=== PATIENT | male | born 1940 | race Caucasian/White ===

== ENCOUNTER 2022-04-04 07:31 | Emergency (ER) | payer MEDICARE ==
[~2022-04-04] VITALS: Ht 182.9 cm; Wt 95.8 kg
[2022-04-04] MEDS ORDERED: PANT40TA29 (07:38)
[2022-04-04] MEDS ORDERED: METO1TAB7 (07:38)
[2022-04-04] MEDS ORDERED: LISI2.5T9 (07:38)
[2022-04-04] MEDS ORDERED: METF-838 (07:38)
[2022-04-04 09:09] LABS: HEMATOCRIT 45.3 % (42.0-52.0); MEAN CORPUSCULAR HEMOGLOBIN 29.7 pg (27.0-33.0); MEAN CORPUSCULAR HGB CONC 30.9 g/dl (32.0-36.5); MEAN CORPUSCULAR VOLUME 96.2 fl (80.0-96.0); PLATELET COUNT, AUTOMATED 227 10^3/uL (150-450); RED BLOOD COUNT 4.71 10^6/uL (4.30-6.10); WHITE BLOOD COUNT 6.1 10^3/uL (4.0-10.0)
[2022-04-04 09:23] LABS: INR 0.96
[2022-04-04 09:38] LABS: CALCIUM LEVEL 8.7 MG/DL (8.8-10.2); CREATININE FOR GFR 1.93 MG/DL (0.70-1.30); GLOMERULAR FILTRATION RATE 35.6 (>35); POTASSIUM SERUM 5.1 MEQ/L (3.5-5.1)
[2022-04-04] MEDS ORDERED: NS 1,000 ML IV ONE (11:20)
[2022-04-04 14:36] VITALS: BP 126/63
== END 2022-04-04 14:39 | disposition home or self-care (01) ==
LOC: M ED 11:20
DX: N40.1 Benign prostatic hyperplasia with lower urinary tract symptoms (principal); D49.4 Neoplasm of unspecified behavior of bladder; R31.0 Gross hematuria; K80.20 Calculus of gallbladder without cholecystitis without obstruction; N28.1 Cyst of kidney, acquired; M19.011 Primary osteoarthritis, right shoulder; Z86.19 Personal history of other infectious and parasitic diseases; E11.9 Type 2 diabetes mellitus without complications; I10 Essential (primary) hypertension; K21.9 Gastro-esophageal reflux disease without esophagitis; J45.909 Unspecified asthma, uncomplicated

== ENCOUNTER 2022-04-10 17:32 | Observation (INO) | payer MEDICARE ==
[~2022-04-10] VITALS: Ht 182.9 cm; Wt 94.6 kg
[~2022-04-10 17:32] MED LIST: LISI2.5T9; METF-838; METO1TAB7; PANT40TA29
[2022-04-10 22:49] LABS: BASO # 0.1 10^3/uL (0.0-0.2); BASO % 0.6 % (0.0-1.0); EOS # 0.3 10^3/uL (0.0-0.5); EOS % 3.5 % (0.0-3.0); HEMATOCRIT 42.8 % (42.0-52.0); HEMOGLOBIN 13.6 g/dl (13.5-17.5); LYMPH # 1.6 10^3/uL (1.5-5.0); LYMPH % 19.2 % (24.0-44.0); MEAN CORPUSCULAR HEMOGLOBIN 30.2 pg (27.0-33.0); MEAN CORPUSCULAR HGB CONC 31.8 g/dl (32.0-36.5); MEAN CORPUSCULAR VOLUME 95.1 fl (80.0-96.0); MONO # 0.9 10^3/uL (0.0-0.8); MONO % 10.8 % (2.0-8.0); NEUTROPHILS # 5.4 10^3/uL (1.5-8.5); NEUTROPHILS % 65.5 % (36.0-66.0); PLATELET COUNT, AUTOMATED 235 10^3/uL (150-450); WHITE BLOOD COUNT 8.2 10^3/uL (4.0-10.0)
[2022-04-10] MEDS ORDERED: EXCETAB32 PO (22:52)
[2022-04-10] MEDS ORDERED: METO1TAB7 PO (22:52)
[2022-04-10] MEDS ORDERED: PANT-23 PO (22:52)
[2022-04-10] MEDS ORDERED: METF-838 PO (22:52)
[2022-04-10] MEDS ORDERED: HOME MED LIST COMPLETE! XX SCH (22:55)
[2022-04-10 23:22] LABS: RSV AMPLIFICATION NEGATIVE (NEGATIVE)
[2022-04-10 23:23] LABS: CALCIUM LEVEL 8.7 MG/DL (8.3-10.6); CREATININE FOR GFR 1.85 MG/DL (0.70-1.30); GLOMERULAR FILTRATION RATE 37.4 (>35); POTASSIUM SERUM 4.2 MMOL/L (3.5-5.1)
[2022-04-11] VITALS (11 sets, daily range): BP systolic 82–124; BP diastolic 48–68
[2022-04-11] MEDS ORDERED: GLUCAGON INJ 1MG VIAL SC PRN (01:40)
[2022-04-11] MEDS ORDERED: DEXTROSE 50% 50 ML SYRINGE IV PRN (01:40)
[2022-04-11] MEDS ORDERED: GLUCOSE 4GM CHEW TABLET PO PRN (01:40)
[2022-04-11] MEDS ORDERED: INSULIN LISPRO (NovoLOG) PER UNIT SC SCH ×3 (07:30→21:00)
[2022-04-11] MEDS ORDERED: METOPROLOL SUCC (TopROL XL) 50MG **XL** TAB PO SCH (09:00)
[2022-04-11] MEDS: PANTOPRAZOLE 40MG TAB (PROTONIX) PO SCH (09:00)
[2022-04-11] MEDS: NS 1,000 ML IV SCH ×2 (10:05→20:11)
[2022-04-11] MEDS: TAMSULOSIN 0.4 MG CAP PO SCH (10:05)
[2022-04-11] MEDS: INSULIN LISPRO (NovoLOG) PER UNIT SC SCH ×2 (12:00→18:00)
[2022-04-11] MEDS ORDERED: ACETAMINOPHEN TAB 650MG DOSE (2X325MG) PO PRN (13:15)
[2022-04-11] MEDS ORDERED: IPRATROPIUM 0.5MG/ALBUTEROL 2.5MG INH SOL UD 3ML (DUONEB) NEB PRN (13:20)
[2022-04-11] MEDS ORDERED: LIDOCAINE 2% 100MG/5ML SDV (FOR ANES.) As Ordered ONE (15:51)
[2022-04-11] MEDS ORDERED: ONDANSETRON 4MG 2ML VIAL As Ordered ONE (15:52)
[2022-04-11] MEDS ORDERED: fentaNYL 100 MCG/2 ML INJECTION As Ordered ONE (15:52)
[2022-04-11] MEDS ORDERED: propofoL 200 MG/20 ML VIAL As Ordered ONE (15:52)
[2022-04-11] MEDS ORDERED: MIDAZOLAM INJ 2MG/2ML VIAL (J2250 PER 1MG) As Ordered ONE (15:52)
[2022-04-11] MEDS ORDERED: dexameTHASONE 4 MG/ML 1ML VIAL (J1100 PER 1MG) As Ordered ONE (15:52)
[2022-04-11] MEDS ORDERED: MUPIROCIN 2% OINT 22 GM TUBE As Ordered ONE (16:17)
[2022-04-11] MEDS ORDERED: BUPIVACAINE HCL 0.25% 30ML VIAL As Ordered ONE (16:17)
[2022-04-11] MEDS ORDERED: BACITRACIN OINTMENT 30GM TUBE As Ordered ONE (16:18)
[2022-04-11] MEDS ORDERED: VASOPRESSIN INJ 20 UNITS/ML VIAL As Ordered ONE (16:50)
[2022-04-11] MEDS ORDERED: ceFAZolin 2 GM/D5W 50 ML IV BAG (J0690 PER 500MG) As Ordered ONE (17:04)
[2022-04-11] MEDS ORDERED: LR 1,000 ML IV SCH (18:10)
[2022-04-11] MEDS ORDERED: MORPHINE 2 MG/ML 1ML VIAL IV PRN (18:10)
[2022-04-11] MEDS ORDERED: ONDANSETRON 4MG 2ML VIAL IV PRN (18:10)
[2022-04-11] MEDS ORDERED: oxyCODONE 5MG TAB PO PRN (18:10)
[2022-04-11] MEDS: fentaNYL 100 MCG/2 ML INJECTION IV PRN ×4 (18:26→18:43)
[2022-04-11] MEDS ORDERED: hydrOXYzine 50 MG TAB PO ONE (20:00)
[2022-04-11] MEDS ORDERED: TEMAZEPAM 7.5 MG CAP PO PRN (20:00)
[2022-04-11] MEDS ORDERED: NS 1,000 ML IV ONE (20:40)
[2022-04-11] MEDS: oxyCODONE 5MG TAB PO PRN (21:04)
[2022-04-11] MEDS: ceFAZolin SOD 1 GM in D5W MINI-BAG PLUS 50 ML IV SCH (23:52)
[2022-04-12] VITALS (7 sets, daily range): BP systolic 93–110; BP diastolic 42–78
[2022-04-12] MEDS: oxyCODONE 5MG TAB PO PRN ×3 (03:55→13:54)
[2022-04-12] MEDS ORDERED: MORPHINE 2 MG/ML 1ML VIAL IV ONE (06:00)
[2022-04-12 07:05] LABS: CALCIUM LEVEL 8.8 MG/DL (8.3-10.6); CREATININE FOR GFR 1.48 MG/DL (0.70-1.30); GLOMERULAR FILTRATION RATE 48.3 (>35); POTASSIUM SERUM 4.7 MMOL/L (3.5-5.1)
[2022-04-12] MEDS: INSULIN LISPRO (NovoLOG) PER UNIT SC SCH ×2 (08:34→12:17)
[2022-04-12] MEDS ORDERED: ACETAMINOPHEN TAB 650MG DOSE (2X325MG) PO PRN (08:50)
[2022-04-12] MEDS: PANTOPRAZOLE 40MG TAB (PROTONIX) PO SCH (09:33)
[2022-04-12] MEDS: TAMSULOSIN 0.4 MG CAP PO SCH (09:33)
[2022-04-12] MEDS: ceFAZolin SOD 1 GM in D5W MINI-BAG PLUS 50 ML IV SCH ×2 (09:43→16:12)
[2022-04-12] MEDS: NS 1,000 ML IV SCH (12:17)
[2022-04-12] MEDS ORDERED: HEPARIN SOD (PORCINE) 5000UNITS/ML 1ML VIAL/SYRINGE SQ SCH (14:00)
[2022-04-12] MEDS ORDERED: TOPR25TA PO (14:32)
[2022-04-12] MEDS ORDERED: FLOM0.4C39 PO (14:32)
[2022-04-12] MEDS ORDERED: COMBAER6 INH (14:32)
[2022-04-12] MEDS ORDERED: OXYC-517 PO (14:32)
[2022-04-12] MEDS ORDERED: ACET-897 PO (14:32)
[2022-04-12] MEDS ORDERED: FARX1TAB3 PO (14:33)
== END 2022-04-12 17:35 | disposition home or self-care (01) ==
LOC: M ED 17:32 → M ED INP 17:33 → ENRESERV 04-11 02:02 → M MS5PR 04-11 02:37
PROVIDERS: ADMIT Internal Medicine; ATTEND Internal Medicine
DX: S63.095A Other dislocation of left wrist and hand, initial encounter (principal); X58.XXXA Exposure to other specified factors, initial encounter; G56.02 Carpal tunnel syndrome, left upper limb; E11.22 Type 2 diabetes mellitus with diabetic chronic kidney disease; I12.9 Hypertensive chronic kidney disease with stage 1 through stage 4 chronic kidney disease, or unspecified chronic kidney disease; N40.1 Benign prostatic hyperplasia with lower urinary tract symptoms; J44.9 Chronic obstructive pulmonary disease, unspecified; K21.9 Gastro-esophageal reflux disease without esophagitis; N18.4 Chronic kidney disease, stage 4 (severe); N32.9 Bladder disorder, unspecified; Z79.899 Other long term (current) drug therapy; Z79.84 Long term (current) use of oral hypoglycemic drugs
CPT/HCPCS: 25215; 36415; 64721; 73110; 76000; 80048; 85025; 87631; 88300; 96372; 96374; 96375; 96376; 97161; 97165; 97530; 99285; G0378; J0690; J1100; J1644; J1815; J2250; J2270; J2405; J3010

== ENCOUNTER → 2022-04-24 | Outpatient (CLI) | payer MEDICARE ==
[~2022-04-24] MED LIST changes: +ACET-897 PO; +COMBAER6 INH; +EXCETAB32 PO; +FARX1TAB3 PO; +FLOM0.4C39 PO; +METF-838 PO; +METO1TAB7 PO; +OXYC-517 PO; +PANT-23 PO; +TOPR25TA PO
== END ==
LOC: M SOG 11:47
PROVIDERS: ATTEND Orthopaedic Surgery Hand Surgery
DX: Z47.89 Encounter for other orthopedic aftercare (principal); Z98.890 Other specified postprocedural states

== ENCOUNTER → 2022-07-03 | Outpatient (REF) | payer MEDICARE ==
[2022-07-03 19:18] LABS: APPEARANCE, URINE MANUAL CLEAR (CLEAR); COLOR, URINE MANUAL LT YELLOW (YELLOW)
[2022-07-03 19:19] LABS: BILIRUBIN, URINE MANUAL NEGATIVE (NEGATIVE); BLOOD URINE MANUAL POSITIVE (NEGATIVE); GLUCOSE, URINE (UA) MANUAL NEGATIVE (NEGATIVE); KETONE, URINE MANUAL NEGATIVE (NEGATIVE); LEUKOCYTE ESTERASE, URINE MAN NEGATIVE (NEGATIVE); NITRITE, URINE MANUAL NEGATIVE (NEGATIVE); PH,URINE MAN 5.5 UNITS (5.0 - 7.0); PROTEIN, URINE MANUAL 2+ mg/dL (NEGATIVE); UROBILINOGEN, URINE MANUAL NORMAL (NORMAL)
[2022-07-03 20:05] LABS: RBC, URINE 30-40 /hpf (0-3); RENAL EPITHELIAL CELLS, URINE SMALL AMOUNT /hpf; SQUAMOUS EPITHELIAL CELL URINE SMALL AMOUNT /hpf (SMALL AMT); WBC, URINE 20-30 /hpf (0-3)
[2022-07-03 20:06] LABS: AMORPHOUS SEDIMENT, URINE SMALL AMOUNT (NEGATIVE); BACTERIA, URINE SMALL AMOUNT; TRANSITIONAL EPI CELLS, URINE SMALL AMOUNT /hpf
== END ==
LOC: M SMT 12:59
PROVIDERS: ATTEND Urology
DX: N32.89 Other specified disorders of bladder (principal)

== ENCOUNTER → 2022-08-20 | Outpatient (CLI) | payer MEDICARE ==
[~2022-08-20] MED LIST changes: +LISI2.5T9 PO
== END ==
LOC: M LABSMTC 10:07
PROVIDERS: ATTEND Anesthesiology
DX: Z01.812 Encounter for preprocedural laboratory examination (principal); Z20.822 Contact with and (suspected) exposure to COVID-19

== ENCOUNTER 2022-08-23 09:39 | Day surgery (SDC) | payer MEDICARE ==
[2022-08-23] VITALS (7 sets, daily range): BP systolic 101–120; BP diastolic 53–80
[~2022-08-23] VITALS: Ht 185.4 cm; Wt 90.7 kg
[2022-08-23] MEDS ORDERED: LR 1,000 ML IV SCH ×2 (10:30→13:15)
[2022-08-23] MEDS ORDERED: INSULIN LISPRO (NovoLOG) PER UNIT SC PRN ×2 (10:55→13:30)
[2022-08-23] MEDS ORDERED: ACETAMINOPHEN 1000MG 100ML IV BAG As Ordered ONE (11:43)
[2022-08-23] MEDS ORDERED: LIDOCAINE 2% 100MG/5ML SDV (FOR ANES.) As Ordered ONE (11:44)
[2022-08-23] MEDS ORDERED: propofoL 200 MG/20 ML VIAL As Ordered ONE (11:44)
[2022-08-23] MEDS ORDERED: ONDANSETRON 4MG 2ML VIAL As Ordered ONE (11:44)
[2022-08-23] MEDS ORDERED: fentaNYL 100 MCG/2 ML INJECTION As Ordered ONE (11:46)
[2022-08-23] MEDS: ceFAZolin SOD 2 GM in IV 1 EA IV ONE (12:10)
[2022-08-23] MEDS ORDERED: ROCURONIUM BROMIDE 50MG/5ML VIAL As Ordered ONE (12:19)
[2022-08-23] MEDS ORDERED: PHENYLephrine 500MCG 5ML (100MCG/ML) SYRINGE As Ordered ONE (12:46)
[2022-08-23] MEDS ORDERED: SUGAMMADEX SODIUM 500 MG/5 ML VIAL (BRIDION) As Ordered ONE (13:08)
[2022-08-23] MEDS ORDERED: ONDANSETRON 4MG 2ML VIAL IV PRN ×2 (13:15→13:25)
[2022-08-23] MEDS ORDERED: ACETAMINOPHEN 500 MG TAB PO PRN (13:25)
[2022-08-23] MEDS ORDERED: GLUCAGON INJ 1MG VIAL SC PRN (13:25)
[2022-08-23] MEDS ORDERED: NORCO, ANEXSIA 5/325MG TABLET (HYDROcodone/ACETAMINOPHEN) PO PRN (13:25)
[2022-08-23] MEDS ORDERED: GLUCOSE 4GM CHEW TABLET PO PRN (13:25)
[2022-08-23] MEDS ORDERED: MORPHINE 2 MG/ML 1ML VIAL IV PRN (13:25)
[2022-08-23] MEDS ORDERED: DEXTROSE 50% 50ML SYRINGE IV PRN (13:25)
[2022-08-23] MEDS: fentaNYL 100 MCG/2 ML INJECTION IV PRN ×4 (13:39→13:59)
[2022-08-23] MEDS: oxyCODONE 5MG TAB PO PRN ×2 (13:52→14:28)
[2022-08-23] MEDS: HYDROMORPHONE HCL 0.5 MG/ 0.5 ML SYRINGE IV PRN ×2 (14:15→14:28)
[2022-08-23 15:26] LABS: BASO % 0.2 % (0.0-1.0); EOS # 0.1 10^3/uL (0.0-0.5); EOS % 0.8 % (0.0-3.0); HEMATOCRIT 37.3 % (42.0-52.0); HEMOGLOBIN 11.8 g/dl (13.5-17.5); LYMPH # 0.7 10^3/uL (1.5-5.0); LYMPH % 6.4 % (24.0-44.0); MEAN CORPUSCULAR HEMOGLOBIN 29.3 pg (27.0-33.0); MEAN CORPUSCULAR HGB CONC 31.6 g/dl (32.0-36.5); MEAN CORPUSCULAR VOLUME 92.6 fl (80.0-96.0); MONO # 0.4 10^3/uL (0.0-0.8); NEUTROPHILS # 8.9 10^3/uL (1.5-8.5); PLATELET COUNT, AUTOMATED 216 10^3/uL (150-450); RED BLOOD COUNT 4.03 10^6/uL (4.30-6.10); WHITE BLOOD COUNT 10.1 10^3/uL (4.0-10.0)
[2022-08-23] MEDS: D5W/0.45% SODIUM CHLORIDE 1,000 ML IV SCH ×2 (15:39→23:00)
[2022-08-23 15:50] LABS: ALBUMIN 2.9 G/DL (3.2-5.2); BILIRUBIN,TOTAL 0.4 MG/DL (0.3-1.2); CALCIUM LEVEL 8.4 MG/DL (8.3-10.6); CREATININE FOR GFR 1.33 MG/DL (0.70-1.30); GLOMERULAR FILTRATION RATE 54.5 (>35); POTASSIUM SERUM 4.3 MMOL/L (3.5-5.1); TOTAL PROTEIN 5.6 G/DL (5.7-8.2)
[2022-08-23] MEDS: INSULIN LISPRO (NovoLOG) PER UNIT SC SCH ×2 (18:46→23:19)
[2022-08-23] MEDS ORDERED: PANTOPRAZOLE 40MG VIAL IV SCH (21:00)
[2022-08-23] MEDS: ceFAZolin SOD 1 GM in D5W MINI-BAG PLUS 50 ML IV SCH (21:25)
[2022-08-23] MEDS: oxyBUTYnin 5 MG TAB PO SCH (21:25)
[2022-08-23] MEDS: PHENAZOPYRIDINE 100 MG TAB PO SCH (23:00)
[2022-08-24 00:20] VITALS: BP 106/56
[2022-08-24] MEDS: ceFAZolin SOD 1 GM in D5W MINI-BAG PLUS 50 ML IV SCH ×2 (03:27→12:13)
[2022-08-24 04:20] VITALS: BP 103/57
[2022-08-24 05:35] VITALS: BP 110/52
[2022-08-24 05:47] LABS: BASO % 0.2 % (0.0-1.0); EOS # 0.1 10^3/uL (0.0-0.5); EOS % 0.7 % (0.0-3.0); HEMATOCRIT 33.4 % (42.0-52.0); HEMOGLOBIN 10.6 g/dl (13.5-17.5); LYMPH # 1.2 10^3/uL (1.5-5.0); LYMPH % 13.8 % (24.0-44.0); MEAN CORPUSCULAR HEMOGLOBIN 29.7 pg (27.0-33.0); MEAN CORPUSCULAR HGB CONC 31.7 g/dl (32.0-36.5); MEAN CORPUSCULAR VOLUME 93.6 fl (80.0-96.0); MONO # 0.8 10^3/uL (0.0-0.8); MONO % 9.3 % (2.0-8.0); NEUTROPHILS # 6.5 10^3/uL (1.5-8.5); NEUTROPHILS % 75.6 % (36.0-66.0); PLATELET COUNT, AUTOMATED 200 10^3/uL (150-450); RED BLOOD COUNT 3.57 10^6/uL (4.30-6.10); WHITE BLOOD COUNT 8.6 10^3/uL (4.0-10.0)
[2022-08-24 06:21] LABS: ALBUMIN 2.7 G/DL (3.2-5.2); BILIRUBIN,TOTAL 0.4 MG/DL (0.3-1.2); CALCIUM LEVEL 7.9 MG/DL (8.3-10.6); CREATININE FOR GFR 1.47 MG/DL (0.70-1.30); GLOMERULAR FILTRATION RATE 48.6 (>35)
[2022-08-24] MEDS: INSULIN LISPRO (NovoLOG) PER UNIT SC SCH ×2 (06:50→13:11)
[2022-08-24] MEDS: PHENAZOPYRIDINE 100 MG TAB PO SCH (08:19)
[2022-08-24] MEDS: oxyBUTYnin 5 MG TAB PO SCH (08:20)
[2022-08-24 10:00] VITALS: BP 102/53
[2022-08-24] MEDS: D5W/0.45% SODIUM CHLORIDE 1,000 ML IV SCH (12:13)
== END 2022-08-24 17:03 | disposition home or self-care (01) ==
LOC: M SDC 09:39 → M MSPAV 15:50 → M SDC 08-24 17:03
PROVIDERS: ATTEND Urology
DX: C67.9 Malignant neoplasm of bladder, unspecified (principal); E11.9 Type 2 diabetes mellitus without complications; I10 Essential (primary) hypertension; J44.9 Chronic obstructive pulmonary disease, unspecified; N40.0 Benign prostatic hyperplasia without lower urinary tract symptoms; Z87.891 Personal history of nicotine dependence; Z79.899 Other long term (current) drug therapy; Z79.51 Long term (current) use of inhaled steroids; Z79.84 Long term (current) use of oral hypoglycemic drugs
CPT/HCPCS: 36415; 52240; 80053; 85025; 88305; 96361; 96365; 96366; 96375; C9113; J0131; J0690; J1100; J1170; J1815; J2370; J2405; J3010

== ENCOUNTER 2022-12-03 08:44 | Observation (INO) | payer MEDICARE ==
[2022-12-03] VITALS (7 sets, daily range): BP systolic 106–134; BP diastolic 48–80; TEMP 97.7–98.4; O2SAT 95–97
[~2022-12-03] VITALS: Ht 182.9 cm; Wt 99.3 kg
[~2022-12-03 08:44] MED LIST changes: +LANTINJ4 SC; +METO1TAB32 PO; +ceFAZolin SOD 2 GM in IV 1 EA IV ONE
[2022-12-03] MEDS ORDERED: LR 1,000 ML IV SCH ×2 (10:05→13:40)
[2022-12-03] MEDS ORDERED: LIDOCAINE 2% 100MG/5ML SDV (FOR ANES.) As Ordered ONE (11:48)
[2022-12-03] MEDS ORDERED: propofoL 200 MG/20 ML VIAL As Ordered ONE (11:48)
[2022-12-03] MEDS ORDERED: fentaNYL 100 MCG/2 ML INJECTION As Ordered ONE (11:49)
[2022-12-03] MEDS ORDERED: ROCURONIUM BROMIDE 50MG/5ML VIAL As Ordered ONE ×2 (12:21→13:23)
[2022-12-03] MEDS ORDERED: PHENYLephrine 500MCG 5ML (100MCG/ML) SYRINGE As Ordered ONE (12:32)
[2022-12-03] MEDS ORDERED: ACETAMINOPHEN 1000MG 100ML IV BAG As Ordered ONE (12:38)
[2022-12-03] MEDS ORDERED: ONDANSETRON 4MG 2ML VIAL As Ordered ONE (12:38)
[2022-12-03] MEDS ORDERED: SUGAMMADEX SODIUM 500 MG/5 ML VIAL (BRIDION) As Ordered ONE (13:02)
[2022-12-03] MEDS ORDERED: ONDANSETRON 4MG 2ML VIAL IV PRN (13:40)
[2022-12-03] MEDS ORDERED: oxyCODONE 5MG TAB PO PRN (13:40)
[2022-12-03] MEDS ORDERED: fentaNYL 100 MCG/2 ML INJECTION IV PRN (13:40)
[2022-12-03] MEDS ORDERED: HYDROMORPHONE HCL 0.5 MG/ 0.5 ML SYRINGE IV PRN (13:40)
[2022-12-03] MEDS ORDERED: GLUCAGON INJ 1MG VIAL SC PRN (14:00)
[2022-12-03] MEDS ORDERED: GLUCOSE 4GM CHEW TABLET PO PRN (14:00)
[2022-12-03] MEDS ORDERED: DEXTROSE 50% 50ML SYRINGE IV PRN (14:00)
[2022-12-03] MEDS: PANTOPRAZOLE 40MG TAB (PROTONIX) PO SCH (17:47)
[2022-12-03] MEDS: INSULIN LISPRO (NovoLOG) PER UNIT SC SCH (17:47)
[2022-12-03] MEDS: D5W/0.45% SODIUM CHLORIDE 1,000 ML IV SCH (17:54)
[2022-12-03] MEDS ORDERED: oxyBUTYnin 5 MG TAB PO STA (18:04)
[2022-12-03] MEDS: oxyBUTYnin 5 MG TAB PO SCH (18:05)
[2022-12-03] MEDS ORDERED: HOME MED LIST COMPLETE! XX SCH (18:20)
[2022-12-03] MEDS: ceFAZolin SOD 2 GM in IV 1 EA IV SCH (19:47)
[2022-12-03] MEDS ORDERED: INSULIN LISPRO (NovoLOG) PER UNIT SC SCH (21:00)
[2022-12-03] MEDS: PHENAZOPYRIDINE 100 MG TAB PO SCH (21:21)
[2022-12-03] MEDS ORDERED: ONDANSETRON 4MG 2ML VIAL IV ONE (23:25)
[2022-12-04] MEDS ORDERED: ACETAMINOPHEN TAB 650MG DOSE (2X325MG) PO ONE ×2 (01:00→06:00)
[2022-12-04 02:00] VITALS: BP 117/66; TEMP 97.9; O2SAT 96
[2022-12-04] MEDS: ceFAZolin SOD 2 GM in IV 1 EA IV SCH ×2 (03:44→11:05)
[2022-12-04] MEDS: D5W/0.45% SODIUM CHLORIDE 1,000 ML IV SCH ×2 (05:27→10:08)
[2022-12-04 05:40] LABS: BASO % 0.3 % (0.0-1.0); EOS % 0.3 % (0.0-3.0); HEMATOCRIT 35.3 % (42.0-52.0); HEMOGLOBIN 11.4 g/dl (13.5-17.5); LYMPH # 0.7 10^3/uL (1.5-5.0); LYMPH % 9.8 % (24.0-44.0); MEAN CORPUSCULAR HEMOGLOBIN 29.6 pg (27.0-33.0); MEAN CORPUSCULAR HGB CONC 32.3 g/dl (32.0-36.5); MEAN CORPUSCULAR VOLUME 91.7 fl (80.0-96.0); MONO # 0.7 10^3/uL (0.0-0.8); MONO % 9.7 % (2.0-8.0); NEUTROPHILS # 5.9 10^3/uL (1.5-8.5); NEUTROPHILS % 79.8 % (36.0-66.0); PLATELET COUNT, AUTOMATED 180 10^3/uL (150-450); RED BLOOD COUNT 3.85 10^6/uL (4.30-6.10); WHITE BLOOD COUNT 7.4 10^3/uL (4.0-10.0)
[2022-12-04 05:57] LABS: ALBUMIN 2.7 G/DL (3.2-5.2); BILIRUBIN,TOTAL 0.3 MG/DL (0.3-1.2); CALCIUM LEVEL 8.6 MG/DL (8.3-10.6); CREATININE FOR GFR 1.96 MG/DL (0.70-1.30); GLOMERULAR FILTRATION RATE 34.9 (>35); POTASSIUM SERUM 4.3 MMOL/L (3.5-5.1)
[2022-12-04 06:00] VITALS: BP 107/45; TEMP 98.6; O2SAT 95
[2022-12-04] MEDS: PHENAZOPYRIDINE 100 MG TAB PO SCH (08:22)
[2022-12-04] MEDS: INSULIN LISPRO (NovoLOG) PER UNIT SC SCH ×2 (08:22→11:44)
[2022-12-04 08:23] VITALS: BP 110/60
[2022-12-04] MEDS: PANTOPRAZOLE 40MG TAB (PROTONIX) PO SCH (08:23)
[2022-12-04] MEDS: oxyBUTYnin 5 MG TAB PO SCH (08:23)
[2022-12-04] MEDS ORDERED: METOPROLOL SUCC *XL* 12.5MG PER 1/2 TAB (TopROL *XL*) PO SCH (09:00)
[2022-12-04 10:00] VITALS: BP 104/56; TEMP 98.1; O2SAT 96
== END 2022-12-04 12:38 | disposition home or self-care (01) ==
LOC: M SDC 08:44 → M RR INP 08:45 → M MSPAV 17:31
PROVIDERS: ADMIT Urology; ATTEND Urology
DX: C67.3 Malignant neoplasm of anterior wall of bladder (principal); C67.4 Malignant neoplasm of posterior wall of bladder; R31.9 Hematuria, unspecified; I10 Essential (primary) hypertension; E11.9 Type 2 diabetes mellitus without complications; M19.019 Primary osteoarthritis, unspecified shoulder; J44.9 Chronic obstructive pulmonary disease, unspecified; J45.909 Unspecified asthma, uncomplicated; N40.1 Benign prostatic hyperplasia with lower urinary tract symptoms; R35.0 Frequency of micturition; D49.519 Neoplasm of unspecified behavior of unspecified kidney; Z87.891 Personal history of nicotine dependence; Z79.899 Other long term (current) drug therapy; Z79.84 Long term (current) use of oral hypoglycemic drugs; Z79.4 Long term (current) use of insulin
CPT/HCPCS: 36415; 52240; 80053; 85025; 88307; 96365; 96366; 96375; 96376; G0378; J0131; J0690; J1100; J1815; J2371; J2405; J3010

== ENCOUNTER 2023-01-08 10:30 | Day surgery (SDC) | payer MEDICARE ==
[~2023-01-08] VITALS: Ht 182.9 cm; Wt 90.9 kg
[~2023-01-08 10:30] MED LIST changes: +LIDOCAINE 2% 100MG/5ML SDV (FOR ANES.) As Ordered ONE; +ONDANSETRON 4MG 2ML VIAL As Ordered ONE; +ROCURONIUM BROMIDE 50MG/5ML VIAL As Ordered ONE; +SUGAMMADEX SODIUM 500 MG/5 ML VIAL (BRIDION) As Ordered ONE; +propofoL 200 MG/20 ML VIAL As Ordered ONE
[2023-01-08] MEDS ORDERED: INSULIN LISPRO (NovoLOG) PER UNIT SC PRN (11:00)
[2023-01-08] MEDS ORDERED: LR 1,000 ML IV SCH (11:00)
[2023-01-08] MEDS ORDERED: ceFAZolin SOD 2 GM in IV 1 EA IV ONE (11:20)
[2023-01-08] MEDS ORDERED: fentaNYL 100 MCG/2 ML INJECTION As Ordered ONE (11:34)
[2023-01-08] MEDS ORDERED: ACETAMINOPHEN 1000MG 100ML IV BAG As Ordered ONE (12:48)
[2023-01-08] MEDS ORDERED: ePHEDrine SULFATE 25 MG/5 ML(5MG/ML) SYRINGE As Ordered ONE (12:54)
[2023-01-08] MEDS ORDERED: MACR100C43 PO (13:49)
[2023-01-08] MEDS ORDERED: OXYB5TAB10 PO (13:49)
[2023-01-08] MEDS ORDERED: PYRI1TAB5 PO (13:49)
[2023-01-08 15:05] VITALS: BP 130/65; TEMP 97.5; O2SAT 97
== END 2023-01-08 15:42 | disposition home or self-care (01) ==
LOC: M SDC 10:30
PROVIDERS: ATTEND Urology
DX: C67.3 Malignant neoplasm of anterior wall of bladder (principal); E11.9 Type 2 diabetes mellitus without complications; I10 Essential (primary) hypertension; J45.909 Unspecified asthma, uncomplicated; Z79.4 Long term (current) use of insulin; Z79.899 Other long term (current) drug therapy; Z87.891 Personal history of nicotine dependence
CPT/HCPCS: 36415; 52240; 84132; 88307; J0131; J1100; J2405; J3010

== ENCOUNTER → 2023-04-30 | Outpatient (REF) | payer MEDICARE ==
[~2023-04-30] MED LIST changes: -LIDOCAINE 2% 100MG/5ML SDV (FOR ANES.) As Ordered ONE; +MACR100C43 PO; -ONDANSETRON 4MG 2ML VIAL As Ordered ONE; +OXYB5TAB11 PO; +PYRI1TAB5 PO; -ROCURONIUM BROMIDE 50MG/5ML VIAL As Ordered ONE; -SUGAMMADEX SODIUM 500 MG/5 ML VIAL (BRIDION) As Ordered ONE; -ceFAZolin SOD 2 GM in IV 1 EA IV ONE; -propofoL 200 MG/20 ML VIAL As Ordered ONE
== END ==
LOC: M LABSMT 13:49
PROVIDERS: ATTEND Urology
DX: Z53.9 Procedure and treatment not carried out, unspecified reason (principal); R39.9 Unspecified symptoms and signs involving the genitourinary system

== ENCOUNTER → 2023-05-14 | Outpatient (REF) | payer MEDICARE ==
[2023-05-14 17:55] LABS: APPEARANCE, URINE CLOUDY (CLEAR); BACTERIA, URINE AUTO 1+ (NEGATIVE); BILIRUBIN, URINE AUTO NEGATIVE (NEGATIVE); BLOOD, URINE BLOOD 1+ (NEGATIVE); COLOR, URINE YELLOW (YELLOW); GLUCOSE, URINE (UA) AUTO NEGATIVE (NEGATIVE); KETONE, URINE AUTO NEGATIVE (NEGATIVE); LEUKOCYTE ESTERASE, URINE AUTO 3+ (NEGATIVE); NITRITE, URINE AUTO NEGATIVE (NEGATIVE); PROTEIN, URINE AUTO 1+ mg/dL (NEGATIVE); RBC, URINE AUTO 50 /HPF (0-3); SQUAMOUS EPITHELIAL CELL UR AU 0 /HPF (0-6); UROBILINOGEN, URINE AUTO 0.2 mg/dL (0.0-2.0); WBC, URINE AUTO TNTC /HPF (0-3)
== END ==
LOC: M SMT 17:07
PROVIDERS: ATTEND Urology
DX: Z85.51 Personal history of malignant neoplasm of bladder (principal); Z79.899 Other long term (current) drug therapy

== ENCOUNTER 2023-06-17 07:21 | Day surgery (SDC) | payer MEDICARE ==
[~2023-06-17] VITALS: Ht 182.9 cm; Wt 94.3 kg
[~2023-06-17 07:21] MED LIST changes: +LIDOCAINE 2% 100MG/5ML SDV (FOR ANES.) As Ordered ONE; +ONDANSETRON 4MG 2ML VIAL As Ordered ONE; +ROCURONIUM BROMIDE 50MG/5ML VIAL As Ordered ONE; +SUGAMMADEX SODIUM 500 MG/5 ML VIAL (BRIDION) As Ordered ONE; +fentaNYL 100 MCG/2 ML INJECTION As Ordered ONE; +propofoL 200 MG/20 ML VIAL As Ordered ONE
[2023-06-17] MEDS ORDERED: ceFAZolin SOD 2 GM in IV 1 EA IV ONE (07:25)
[2023-06-17] MEDS ORDERED: LR 1,000 ML IV SCH ×2 (07:55→09:55)
[2023-06-17] MEDS ORDERED: ACET1TAB55 PO (08:08)
[2023-06-17] MEDS ORDERED: ACETAMINOPHEN 1000MG 100ML IV BAG As Ordered ONE (09:23)
[2023-06-17] MEDS ORDERED: MACR100C43 PO (09:51)
[2023-06-17] MEDS ORDERED: PYRI1TAB5 PO (09:51)
[2023-06-17] MEDS ORDERED: OXYB5TAB11 PO (09:51)
[2023-06-17] MEDS ORDERED: ONDANSETRON 4MG 2ML VIAL IV PRN (09:55)
[2023-06-17] MEDS ORDERED: HYDROMORPHONE HCL 0.5 MG/ 0.5 ML SYRINGE IV PRN (09:55)
[2023-06-17] MEDS ORDERED: oxyCODONE 5MG TAB PO PRN (09:55)
[2023-06-17] MEDS ORDERED: fentaNYL 100 MCG/2 ML INJECTION IV PRN (09:55)
[2023-06-17 11:21] VITALS: BP 128/82; TEMP 97.7; O2SAT 98
== END 2023-06-17 11:33 | disposition home or self-care (01) ==
LOC: M SDC 07:21
PROVIDERS: ATTEND Urology
DX: C67.4 Malignant neoplasm of posterior wall of bladder (principal); C67.1 Malignant neoplasm of dome of bladder; E11.9 Type 2 diabetes mellitus without complications; I10 Essential (primary) hypertension; R12 Heartburn; M79.601 Pain in right arm; Z88.8 Allergy status to other drugs, medicaments and biological substances; Z79.899 Other long term (current) drug therapy; Z79.4 Long term (current) use of insulin; Z79.84 Long term (current) use of oral hypoglycemic drugs; Z87.891 Personal history of nicotine dependence
CPT/HCPCS: 52240; 88305; J0131; J0690; J1100; J2405; J3010

== ENCOUNTER → 2023-10-23 | Outpatient (REF) | payer MEDICARE ==
[~2023-10-23] MED LIST changes: +ACET1TAB55 PO; +APPLCAP PO; +CENT50TA PO; +GALZ50CA PO; -LIDOCAINE 2% 100MG/5ML SDV (FOR ANES.) As Ordered ONE; -ONDANSETRON 4MG 2ML VIAL As Ordered ONE; -OXYB5TAB11 PO; +OXYB5TAB14 PO; -ROCURONIUM BROMIDE 50MG/5ML VIAL As Ordered ONE; -SUGAMMADEX SODIUM 500 MG/5 ML VIAL (BRIDION) As Ordered ONE; +VIT K; -fentaNYL 100 MCG/2 ML INJECTION As Ordered ONE; -propofoL 200 MG/20 ML VIAL As Ordered ONE
[2023-10-23 18:01] LABS: APPEARANCE, URINE CLEAR (CLEAR); BACTERIA, URINE AUTO NEGATIVE (NEGATIVE); BILIRUBIN, URINE AUTO NEGATIVE (NEGATIVE); BLOOD, URINE BLOOD 1+ (NEGATIVE); COLOR, URINE STRAW (YELLOW); GLUCOSE, URINE (UA) AUTO NEGATIVE (NEGATIVE); KETONE, URINE AUTO NEGATIVE (NEGATIVE); LEUKOCYTE ESTERASE, URINE AUTO 1+ (NEGATIVE); MUCUS, URINE SMALL (NEGATIVE); NITRITE, URINE AUTO NEGATIVE (NEGATIVE); PROTEIN, URINE AUTO NEGATIVE (NEGATIVE); RBC, URINE AUTO 7 /HPF (0-3); SPECIFIC GRAVITY URINE AUTO 1.014 (1.002-1.035); SQUAMOUS EPITHELIAL CELL UR AU 0 /HPF (0-6); UROBILINOGEN, URINE AUTO 0.2 mg/dL (0.0-2.0); WBC, URINE AUTO 13 /HPF (0-3)
== END ==
LOC: M SMT 16:56
PROVIDERS: ATTEND Urology
DX: Z85.51 Personal history of malignant neoplasm of bladder (principal)

== ENCOUNTER → 2024-01-22 | Outpatient (REF) | payer MEDICARE ==
[~2024-01-22] MED LIST changes: +TAMS1CAP17 PO
[2024-01-22 18:38] LABS: APPEARANCE, URINE CLEAR (CLEAR); BACTERIA, URINE AUTO NEGATIVE (NEGATIVE); BILIRUBIN, URINE AUTO NEGATIVE (NEGATIVE); BLOOD, URINE BLOOD 3+ (NEGATIVE); COLOR, URINE STRAW (YELLOW); GLUCOSE, URINE (UA) AUTO NEGATIVE (NEGATIVE); KETONE, URINE AUTO NEGATIVE (NEGATIVE); LEUKOCYTE ESTERASE, URINE AUTO NEGATIVE (NEGATIVE); MUCUS, URINE SMALL (NEGATIVE); NITRITE, URINE AUTO NEGATIVE (NEGATIVE); PROTEIN, URINE AUTO NEGATIVE (NEGATIVE); RBC, URINE AUTO TNTC /HPF (0-3); SPECIFIC GRAVITY URINE AUTO 1.011 (1.002-1.035); SQUAMOUS EPITHELIAL CELL UR AU 0 /HPF (0-6); UROBILINOGEN, URINE AUTO 0.2 mg/dL (0.0-2.0); WBC, URINE AUTO 8 /HPF (0-3)
== END ==
LOC: M SMT 17:22
PROVIDERS: ATTEND Urology
DX: Z85.51 Personal history of malignant neoplasm of bladder (principal); Z79.899 Other long term (current) drug therapy

== ENCOUNTER 2024-03-18 11:59 | Day surgery (SDC) | payer MEDICARE ==
[2024-03-09] MEDS: ceFAZolin SOD 2 GM in IV 1 EA IV ONE (06:00)
[~2024-03-18] VITALS: Ht 182.9 cm; Wt 99.3 kg
[2024-03-18] MEDS ORDERED: LR 1,000 ML IV SCH ×2 (12:35→15:45)
[2024-03-18] MEDS ORDERED: ONDANSETRON 4MG 2ML VIAL As Ordered ONE (14:22)
[2024-03-18] MEDS ORDERED: ROCURONIUM BROMIDE 50MG/5ML VIAL As Ordered ONE (14:22)
[2024-03-18] MEDS ORDERED: LIDOCAINE 2% 100MG/5ML SDV (FOR ANES.) As Ordered ONE (14:22)
[2024-03-18] MEDS ORDERED: propofoL 200 MG/20 ML VIAL As Ordered ONE (14:22)
[2024-03-18] MEDS ORDERED: fentaNYL 100 MCG/2 ML INJECTION As Ordered ONE (14:23)
[2024-03-18] MEDS ORDERED: SUGAMMADEX SODIUM 500 MG/5 ML VIAL (BRIDION) As Ordered ONE (14:25)
[2024-03-18] MEDS ORDERED: KETOROLAC 60MG 2ML VIAL As Ordered ONE (14:27)
[2024-03-18] MEDS: ceFAZolin SOD 2 GM in IV 1 EA IV ONE (15:10)
[2024-03-18] MEDS ORDERED: ePHEDrine SULFATE 25 MG/5 ML(5MG/ML) SYRINGE As Ordered ONE (15:15)
[2024-03-18] MEDS ORDERED: PHENYLephrine 500MCG 5ML (100MCG/ML) SYRINGE As Ordered ONE (15:15)
[2024-03-18] MEDS ORDERED: ACETAMINOPHEN 1000MG 100ML IV BAG As Ordered ONE (15:17)
[2024-03-18] MEDS: MITOMYCIN 40MG IN 40ML SWFI SYRINGE INTRAVESIC ONE (15:40)
[2024-03-18] MEDS ORDERED: fentaNYL 100 MCG/2 ML INJECTION IV PRN (15:45)
[2024-03-18] MEDS ORDERED: ONDANSETRON 4MG 2ML VIAL IV PRN (15:45)
[2024-03-18] MEDS ORDERED: HYDROMORPHONE HCL 0.5 MG/ 0.5 ML SYRINGE IV PRN (16:00)
[2024-03-18] MEDS: oxyCODONE 5MG TAB PO PRN (16:10)
[2024-03-18 17:14] VITALS: BP 142/68; TEMP 97.7; O2SAT 96
== END 2024-03-18 17:23 | disposition home or self-care (01) ==
LOC: M SDC 11:59
PROVIDERS: ATTEND Urology
DX: C67.5 Malignant neoplasm of bladder neck (principal); R94.8 Abnormal results of function studies of other organs and systems; E11.9 Type 2 diabetes mellitus without complications; G47.30 Sleep apnea, unspecified; Z79.899 Other long term (current) drug therapy
CPT/HCPCS: 52240; 88307; C1769; J0131; J0690; J1100; J2371; J2405; J3010; J9280

== ENCOUNTER → 2024-07-01 | Outpatient (REF) | payer MEDICARE ==
[2024-07-01 18:19] LABS: APPEARANCE, URINE HAZY (CLEAR); BACTERIA, URINE AUTO 1+ (NEGATIVE); BILIRUBIN, URINE AUTO NEGATIVE (NEGATIVE); BLOOD, URINE BLOOD 3+ (NEGATIVE); COLOR, URINE YELLOW (YELLOW); GLUCOSE, URINE (UA) AUTO NEGATIVE (NEGATIVE); KETONE, URINE AUTO NEGATIVE (NEGATIVE); LEUKOCYTE ESTERASE, URINE AUTO 3+ (NEGATIVE); MUCUS, URINE SMALL (NEGATIVE); NITRITE, URINE AUTO NEGATIVE (NEGATIVE); PROTEIN, URINE AUTO NEGATIVE (NEGATIVE); RBC, URINE AUTO 176 /HPF (0-3); SPECIFIC GRAVITY URINE AUTO 1.009 (1.002-1.035); SQUAMOUS EPITHELIAL CELL UR AU 0 /HPF (0-6); UROBILINOGEN, URINE AUTO 0.2 mg/dL (0.0-2.0); WBC, URINE AUTO 39 /HPF (0-3)
== END ==
LOC: M SMT 16:52
PROVIDERS: ATTEND Urology
DX: Z85.51 Personal history of malignant neoplasm of bladder (principal); Z79.899 Other long term (current) drug therapy

== ENCOUNTER 2024-08-13 11:06 | Day surgery (SDC) | payer MEDICARE ==
[~2024-08-13] VITALS: Ht 182.9 cm; Wt 100.9 kg
[~2024-08-13 11:06] MED LIST changes: +ECOT81TA5 PO; +LIDOCAINE 2% 100MG/5ML SDV (FOR ANES.) As Ordered ONE; +ONDANSETRON 4MG 2ML VIAL As Ordered ONE; +ROCURONIUM BROMIDE 50MG/5ML VIAL As Ordered ONE; +SUGAMMADEX SODIUM 500 MG/5 ML VIAL (BRIDION) As Ordered ONE; +propofoL 200 MG/20 ML VIAL As Ordered ONE
[2024-08-13] MEDS ORDERED: fentaNYL 100 MCG/2 ML INJECTION As Ordered ONE (11:59)
[2024-08-13] MEDS ORDERED: MITOMYCIN 40MG IN 40ML SWFI SYRINGE INTRAVESIC ONE (12:00)
[2024-08-13 12:18] LABS: CALCIUM LEVEL 8.9 MG/DL (8.3-10.6); CREATININE FOR GFR 3.1 MG/DL (0.70-1.30); GLOMERULAR FILTRATION RATE 20.5 (>35); POTASSIUM SERUM 5.1 MMOL/L (3.5-5.1)
[2024-08-13] MEDS: ceFAZolin SOD 2 GM IV ONCE IV ONE (12:29)
[2024-08-13] MEDS ORDERED: ACETAMINOPHEN 1000MG/100ML IV BAG As Ordered ONE (12:33)
[2024-08-13] MEDS ORDERED: PHENYLephrine 500MCG 5ML (100MCG/ML) SYRINGE As Ordered ONE (12:40)
[2024-08-13] MEDS ORDERED: METOPROLOL 5 MG/5 ML VIAL As Ordered ONE (13:24)
[2024-08-13] MEDS ORDERED: ONDANSETRON 4MG 2ML VIAL IV PRN (13:40)
[2024-08-13] MEDS ORDERED: fentaNYL 100 MCG/2 ML INJECTION IV PRN (13:40)
[2024-08-13] MEDS: HYDROMORPHONE HCL 0.5 MG/ 0.5 ML SYRINGE IV PRN (14:01)
[2024-08-13] MEDS: oxyCODONE 5MG TAB PO PRN (14:25)
[2024-08-13 15:34] VITALS: BP 135/64; TEMP 97.6; O2SAT 95
== END 2024-08-13 15:40 | disposition home or self-care (01) ==
LOC: M SDC 11:06
PROVIDERS: ATTEND Urology
DX: C68.0 Malignant neoplasm of urethra (principal); D41.3 Neoplasm of uncertain behavior of urethra; E11.9 Type 2 diabetes mellitus without complications; R06.83 Snoring; N28.9 Disorder of kidney and ureter, unspecified; Z79.899 Other long term (current) drug therapy; Z87.891 Personal history of nicotine dependence
CPT/HCPCS: 36415; 52240; 52601; 80048; 84132; 88305; C1769; J0131; J0690; J1100; J1171; J2371; J2405; J3010

== ENCOUNTER → 2024-09-18 | Outpatient (CLI) | payer MEDICARE ==
[~2024-09-18] MED LIST changes: -FLOM0.4C39 PO; -GALZ50CA PO; -LIDOCAINE 2% 100MG/5ML SDV (FOR ANES.) As Ordered ONE; -ONDANSETRON 4MG 2ML VIAL As Ordered ONE; -ROCURONIUM BROMIDE 50MG/5ML VIAL As Ordered ONE; -SUGAMMADEX SODIUM 500 MG/5 ML VIAL (BRIDION) As Ordered ONE; +TAMS-18 PO; +ZINC50CA4 PO; -propofoL 200 MG/20 ML VIAL As Ordered ONE
== END ==
LOC: M RAD 12:43
PROVIDERS: ATTEND Urology
DX: N20.0 Calculus of kidney (principal)

== ENCOUNTER → 2024-12-21 | Outpatient (REF) | payer MEDICARE ==
[2024-12-22 13:54] LABS: APPEARANCE, URINE HAZY (CLEAR); BACTERIA, URINE AUTO NEGATIVE (NEGATIVE); BILIRUBIN, URINE AUTO NEGATIVE (NEGATIVE); BLOOD, URINE BLOOD 2+ (NEGATIVE); GLUCOSE, URINE (UA) AUTO NEGATIVE (NEGATIVE); KETONE, URINE AUTO NEGATIVE (NEGATIVE); LEUKOCYTE ESTERASE, URINE AUTO 3+ (NEGATIVE); MUCUS, URINE SMALL (NEGATIVE); NITRITE, URINE AUTO NEGATIVE (NEGATIVE); PROTEIN, URINE AUTO 1+ mg/dL (NEGATIVE); RBC, URINE AUTO 20 /HPF (0-3); SPECIFIC GRAVITY URINE AUTO 1.019 (1.002-1.035); SQUAMOUS EPITHELIAL CELL UR AU 0 /HPF (0-6); UROBILINOGEN, URINE AUTO 0.2 mg/dL (0.0-2.0); WBC, URINE AUTO 125 /HPF (0-3)
== END ==
LOC: M LABSMT 14:48
PROVIDERS: ATTEND Urology
DX: R39.9 Unspecified symptoms and signs involving the genitourinary system (principal)

== ENCOUNTER 2025-01-28 10:18 | Day surgery (SDC) | payer MEDICARE ==
[~2025-01-28] VITALS: Ht 182.9 cm; Wt 98.9 kg
[~2025-01-28 10:18] MED LIST changes: +BAYE325T13 PO
[2025-01-28] MEDS ORDERED: SUGAMMADEX SODIUM 500 MG/5 ML VIAL As Ordered ONE (11:01)
[2025-01-28] MEDS ORDERED: ONDANSETRON 4MG 2ML VIAL As Ordered ONE (11:01)
[2025-01-28] MEDS ORDERED: ROCURONIUM BROMIDE 50MG/5ML VIAL As Ordered ONE (11:01)
[2025-01-28] MEDS ORDERED: ACETAMINOPHEN 1000MG/100ML IV BAG As Ordered ONE (11:01)
[2025-01-28] MEDS ORDERED: LIDOCAINE 2% 100 MG/5 ML SDV (FOR ANES.) As Ordered ONE (11:01)
[2025-01-28] MEDS: LR 1,000 ML IV SCH (11:15)
[2025-01-28] MEDS: SCOPOLAMINE 1MG TRANSDERMAL PATCH TOP ONE (11:50)
[2025-01-28] MEDS: ceFAZolin SOD 2 GM IV ONCE IV ONE (12:11)
[2025-01-28] MEDS ORDERED: PHENYLephrine 500MCG 5ML (100MCG/ML) SYRINGE As Ordered ONE (12:32)
[2025-01-28] MEDS: METHYLENE BLUE 0.5% (5 MG/ML) 10 ML AMP As Ordered ONE (12:39)
[2025-01-28] MEDS: ISOVUE-300 61% 100 ML VIAL As Ordered ONE (13:16)
[2025-01-28] MEDS ORDERED: LEVO1TAB38 PO (13:17)
[2025-01-28] MEDS ORDERED: MEPERIDINE 25 MG/ML 1 ML VIAL IV PRN (13:30)
[2025-01-28] MEDS ORDERED: ONDANSETRON 4MG 2ML VIAL IV PRN (13:30)
[2025-01-28 15:12] VITALS: BP 138/68; TEMP 97.8; O2SAT 100
== END 2025-01-28 15:33 | disposition home or self-care (01) ==
LOC: M SDC 10:18
PROVIDERS: ATTEND Urology
DX: N40.1 Benign prostatic hyperplasia with lower urinary tract symptoms (principal); N28.89 Other specified disorders of kidney and ureter; E11.40 Type 2 diabetes mellitus with diabetic neuropathy, unspecified; E11.22 Type 2 diabetes mellitus with diabetic chronic kidney disease; N18.4 Chronic kidney disease, stage 4 (severe); R35.0 Frequency of micturition; Z87.891 Personal history of nicotine dependence; Z79.82 Long term (current) use of aspirin; Z79.84 Long term (current) use of oral hypoglycemic drugs; Z79.899 Other long term (current) drug therapy; K21.9 Gastro-esophageal reflux disease without esophagitis; I13.0 Hypertensive heart and chronic kidney disease with heart failure and stage 1 through stage 4 chronic kidney disease, or unspecified chronic kidney disease; J44.9 Chronic obstructive pulmonary disease, unspecified; Z86.73 Personal history of transient ischemic attack (TIA), and cerebral infarction without residual deficits; D63.1 Anemia in chronic kidney disease; I35.0 Nonrheumatic aortic (valve) stenosis
CPT/HCPCS: 52240; 52601; 88305; 88307; C1769; J0131; J0690; J2371; J2405; J3010; Q9968